=== PATIENT | male | born 1940 | race Caucasian/White ===

== ENCOUNTER 2016-08-23 09:15 | Emergency (ER) | payer MEDICARE, OTHER | END 2016-08-23 11:58 | disposition short-term general hospital (02) | LOC: ER 09:15 | DX: I21.4 Non-ST elevation (NSTEMI) myocardial infarction (principal); A41.9 Sepsis, unspecified organism; J18.9 Pneumonia, unspecified organism; R09.02 Hypoxemia; E11.9 Type 2 diabetes mellitus without complications; I10 Essential (primary) hypertension; E78.00 Pure hypercholesterolemia, unspecified | CPT/HCPCS: 36415; 96365; 96366; 96368; 96375; 96376; J0456; J0696; J1644; J2060 ==